=== PATIENT | female | born 1950 | race Caucasian/White ===

== ENCOUNTER 2019-03-05 12:57 | Day surgery (SDC) | payer MEDICARE, OTHER ==
[~2019-03-05] VITALS: Ht 167.6 cm; Wt 112.4 kg
== END 2019-03-05 16:20 | disposition home or self-care (01) ==
LOC: ORSCSDS 12:57
PROVIDERS: Student in an Organized Health Care Education/Training Program
PROC: 0DBN8ZX Excision of Sigmoid Colon, Via Natural or Artificial Opening Endoscopic, Diagnostic (ICD-10-PCS; principal; 2019-03-05 14:15)
DX: R19.5 Other fecal abnormalities (principal); K63.5 Polyp of colon; K57.30 Diverticulosis of large intestine without perforation or abscess without bleeding; E66.01 Morbid (severe) obesity due to excess calories; Z68.41 Body mass index [BMI] 40.0-44.9, adult
CPT/HCPCS: 88305; J2704

== ENCOUNTER → 2019-06-23 | Outpatient (CLI) | payer MEDICARE, OTHER | END | disposition home or self-care (01) | LOC: PLD 11:00 → LAB SHORT 11:00 | DX: L57.0 Actinic keratosis (principal) | CPT/HCPCS: 88305 ==

== ENCOUNTER 2019-12-25 13:54 | Inpatient (IN) | payer MEDICARE, OTHER ==
[~2019-12-25] VITALS: Ht 170.2 cm; Wt 111.5 kg
[2019-12-25 15:25] LABS: BASOPHILS ABSOLUTE AUTO 0.05 K/mm3 (0.00-0.23); BASOPHILS PERCENT AUTO 0 % (0-2); EOSINOPHILS ABSOLUTE AUTO 0.06 K/mm3 (0.00-0.68); EOSINOPHILS PERCENT AUTO 0 % (0-6); Hematocrit 40.4 % (33.0-51.0); IMMATURE GRAN ABSOLUTE AUTO 0.08 K/mm3 (0.00-0.10); IMMATURE GRAN PERCENT AUTO 1 % (0-1); LYMPHOCYTES ABSOLUTE AUTO 1.09 K/mm3 (0.84-5.20); LYMPHOCYTES PERCENT AUTO 7 % (21-46); MONOCYTES ABSOLUTE AUTO 0.65 K/mm3 (0.16-1.47); MONOCYTES PERCENT AUTO 4 % (4-13); Mean Corpuscular HGB 30.3 pg (26.0-34.0); Mean Corpuscular HGB Conc 32.2 g/dL (31.5-36.5); Mean Corpuscular Volume 94 fL (80-100); Mean Platelet Volume 9.5 fL (9.1-12.4); NEUTROPHILS ABSOLUTE AUTO 13.39 K/mm3 (1.96-9.15); NEUTROPHILS PERCENT AUTO 88 % (41-73); Platelet Count 335 K/mm3 (150-400); RDW Coefficient Variation 12.8 % (11.7-14.2); Red Blood Cell Count 4.29 M/mm3 (3.80-5.20); White Blood Cell Count 15.32 K/mm3 (4.00-11.30)
[2019-12-25 15:41] LABS: Alanine Aminotransfer (ALT/SGP 32 U/L (12-78); Albumin, Blood 3.7 g/dL (3.4-5.0); Albumin/Globulin Ratio 0.9 (0.8-1.8); Alk Phos 85 U/L (50-136); Anion Gap 4 mmol/L (6-16); Aspartate Aminotrans (AST/SGOT 23 U/L (12-37); Bilirubin, Total 0.5 mg/dL (0.1-1.0); Blood Urea Nitrogen 21 mg/dL (8-24); Bun/Creatinine Ratio 23.5 (12.0-20.0); CO2, Blood 28 mmol/L (21-32); Calcium, Blood 8.6 mg/dL (8.5-10.1); Chloride, Blood 107 mmol/L (98-108); Creatinine, Blood 0.89 mg/dL (0.40-1.00); Globulin, Blood 3.9 g/dL (2.2-4.0); Glomerular Filtration Rate >60 (60-); Glucose, Blood 124 mg/dL (70-99); Potassium, Blood 3.5 mmol/L (3.5-5.5); Sodium, Blood 139 mmol/L (136-145); Total Protein, Blood 7.6 g/dL (6.4-8.2)
--- NOTE | 2019-12-25 17:55 | NUR ---
PT ARRIVED TO THE ROOM AT APPROXIMATELY 1745. SHE IS ALERT AND ORIENTED. PAINFUL WITH TRANSFER AND REPOSITIONING, PAIN IS MANAGED WHEN PT IS AT REST. PT ON 2L02 WHEN SHE ARRIVED WEANED TO 1L O2 AND PLACED ON CONTINUOUSE PULSE OX. O2 SATURATION AT 94%. WILL CONTINUE TO MONITOR.
--- NOTE | 2019-12-25 19:32 | NUR ---
CONSULT DR. CUI NOTIFIED THAT PT ARRIVED TO THE UNIT. HE WAS ALSO NOTIFIED THAT PT HAS A GOUGE ON HER R BRADSHAW. PLAN FOR PT TO BE NPO AT [place] FOR SURGERY TOMORROW.
--- NOTE | 2019-12-25 19:33 | NUR ---
SHIFT SUMMARY PT IS A NEW ADMIT THIS EVENING. SHE HAS BEEN ALERT AND ORIENTED SINCE SHE ARRIVED TO THE UNIT. SHE DENIES PAIN WHEN AT REST. PT WAS ORIENTED TO THE ROOM AND HER CALL LIGHT. PT IS EATING DINNER AT THIS TIME. PLAN FOR NPO AT [place] FOR SURGERY TOMORROW. VSS. WILL MONITOR UNTIL REPORT TO ONCOMING RN.
[2019-12-25 21:11] LABS: Source, Urine Catheter
[2019-12-25 21:14] LABS: Appearance, Urine Clear (Clear); Bilirubin, Urine Neg (Neg); Blood, Urine 1+ (Neg); Color, Urine Yellow (P-Yellow); Glucose Qualitative, Urine Neg (Neg); Ketones, Urine 2+ (Neg); Leukocyte Esterase, Urine 2+ (Neg); Nitrite, Urine Neg (Neg); Protein, Urine 2+ (Neg); Specific Gravity, Urine 1.025 (1.003-1.022); Urobilinogen, Urine NORM (Normal)
[2019-12-25 21:22] LABS: Bacteria Mod /hpf; Red Blood Cells, Urine 0-2 /hpf (0-2); Squamous Epithelial Cells Mod /hpf (Few)
[2019-12-26 04:28] LABS: BASOPHILS ABSOLUTE AUTO 0.03 K/mm3 (0.00-0.23); BASOPHILS PERCENT AUTO 0 % (0-2); EOSINOPHILS ABSOLUTE AUTO 0.14 K/mm3 (0.00-0.68); EOSINOPHILS PERCENT AUTO 2 % (0-6); Hematocrit 37.4 % (33.0-51.0); Hemoglobin 11.6 g/dL (11.5-16.0); IMMATURE GRAN ABSOLUTE AUTO 0.02 K/mm3 (0.00-0.10); IMMATURE GRAN PERCENT AUTO 0 % (0-1); LYMPHOCYTES ABSOLUTE AUTO 1.72 K/mm3 (0.84-5.20); LYMPHOCYTES PERCENT AUTO 21 % (21-46); MONOCYTES ABSOLUTE AUTO 0.86 K/mm3 (0.16-1.47); MONOCYTES PERCENT AUTO 11 % (4-13); Mean Corpuscular HGB 29.9 pg (26.0-34.0); Mean Corpuscular Volume 96 fL (80-100); Mean Platelet Volume 9.4 fL (9.1-12.4); NEUTROPHILS ABSOLUTE AUTO 5.39 K/mm3 (1.96-9.15); NEUTROPHILS PERCENT AUTO 66 % (41-73); Platelet Count 291 K/mm3 (150-400); RDW Coefficient Variation 13.1 % (11.7-14.2); RDW Standard Deviation 46.8 fL (35.1-46.3); Red Blood Cell Count 3.88 M/mm3 (3.80-5.20); White Blood Cell Count 8.16 K/mm3 (4.00-11.30)
--- NOTE | 2019-12-26 04:32 | NUR ---
SHIFT SUMMARY PT IS A/O X4. HAS BEEN BEDREST DUE TO R HIP FX. REPOSITIONED SEVERAL TIMES THROUGHOUT THE NIGHT. PAIN CONTROLLED WITH 0.5 MG DILAUDED PER ORDERS. FIELDS PLACED AT START OF SHIFT; PATENT WITH STAT LOCK IN PLACE. BIOX IN PLACE; O2 SATURATION >92% ON 1L O2 NC. NO ACUTE CHANGES. ASSISTED WITH ADL'S PRN.
[2019-12-26 04:45] LABS: Anion Gap 2 mmol/L (6-16); Blood Urea Nitrogen 21 mg/dL (8-24); Bun/Creatinine Ratio 25.4 (12.0-20.0); CO2, Blood 29 mmol/L (21-32); Calcium, Blood 7.9 mg/dL (8.5-10.1); Chloride, Blood 108 mmol/L (98-108); Creatinine, Blood 0.83 mg/dL (0.40-1.00); Glomerular Filtration Rate >60 (60-); Glucose, Blood 117 mg/dL (70-99); Potassium, Blood 3.7 mmol/L (3.5-5.5); Sodium, Blood 139 mmol/L (136-145)
--- NOTE | 2019-12-26 19:18 | NUR ---
SHIFT SUMMARY S/P R SERA, AQUACEL CDI, WIGGLES TOES, DENIES N&T, TEDS/SCDS. DENIES PAIN AT THIS TIME. NAUSEA TX'D WITH ZOFRAN. CHAD PO H2O, DECLINED FOOD. AWAITING POST OP VOID. REPORT GIVEN TO MELIA VELARDE.
--- NOTE | 2019-12-26 23:45 | NUR ---
PROVIDER NOTIFIED OF ELEVATED BP HOSPITALIST NOTIFED OF PT'S INCREASED BP, WHICH IS TREADING UP W/MOST RECENT 185/97. ORDER FOR 10 MG IV HYDRALAZINE Q4 FOR SBP ABOVE 160 OBTAINED. WILL WILL ASSESS AND ADMINSTER MEDICATION PER ORDER,
--- NOTE | 2019-12-27 03:43 | NUR ---
MAURY. RN NOTIFIED OF VITALS.
[2019-12-27 04:11] LABS: BASOPHILS ABSOLUTE AUTO 0.02 K/mm3 (0.00-0.23); BASOPHILS PERCENT AUTO 0 % (0-2); EOSINOPHILS PERCENT AUTO 0 % (0-6); Hematocrit 31.7 % (33.0-51.0); Hemoglobin 10.1 g/dL (11.5-16.0); IMMATURE GRAN ABSOLUTE AUTO 0.04 K/mm3 (0.00-0.10); IMMATURE GRAN PERCENT AUTO 0 % (0-1); LYMPHOCYTES ABSOLUTE AUTO 0.94 K/mm3 (0.84-5.20); LYMPHOCYTES PERCENT AUTO 9 % (21-46); MONOCYTES ABSOLUTE AUTO 0.82 K/mm3 (0.16-1.47); MONOCYTES PERCENT AUTO 8 % (4-13); Mean Corpuscular HGB 30.1 pg (26.0-34.0); Mean Corpuscular HGB Conc 31.9 g/dL (31.5-36.5); Mean Corpuscular Volume 94 fL (80-100); Mean Platelet Volume 9.4 fL (9.1-12.4); NEUTROPHILS ABSOLUTE AUTO 9.15 K/mm3 (1.96-9.15); NEUTROPHILS PERCENT AUTO 83 % (41-73); Platelet Count 251 K/mm3 (150-400); RDW Coefficient Variation 12.7 % (11.7-14.2); RDW Standard Deviation 44.1 fL (35.1-46.3); Red Blood Cell Count 3.36 M/mm3 (3.80-5.20); White Blood Cell Count 10.97 K/mm3 (4.00-11.30)
--- NOTE | 2019-12-27 04:15 | NUR ---
SHIFT SUMMARY POD 1 RIGHT KRISTYN, GURPREETEL CDI. PAIN MANAGED WITH PO MEDICATION AND TORADOL; POLAR PACK IN PLACE. PT UP TO BSC AND AMBULATING HALLWAY X1. MEDICATED X1 10MG HYDRALAZINE FOR ELEVATED BP, BP NOW WNL. POOR APPETITE, CHAD CL/CRACKERS. IVF AND ABX ADMINISTERED PER ORDERS. FREQUENT EDUCATION AND ENCOUR REQUIRED T/O SHIFT FOR COUGH/TURN/DB AND I.S. USE. SCDS AND KNEE HIGH TEDS TO BLE IN PLACE. PT CURRENTLY RESTING IN BED WITH CALL LIGHT IN REACH. WILL CONT TO MONITOR AND GIVE REPORT TO ONCOMING RN.
[2019-12-27 04:32] LABS: Anion Gap 4 mmol/L (6-16); Blood Urea Nitrogen 15 mg/dL (8-24); Bun/Creatinine Ratio 18.9 (12.0-20.0); CO2, Blood 28 mmol/L (21-32); Calcium, Blood 7.8 mg/dL (8.5-10.1); Chloride, Blood 106 mmol/L (98-108); Glomerular Filtration Rate >60 (60-); Glucose, Blood 129 mg/dL (70-99); Potassium, Blood 3.8 mmol/L (3.5-5.5); Sodium, Blood 138 mmol/L (136-145)
[2019-12-27] MEDS ORDERED: Acetaminophen500 MG PO (12:50)
[2019-12-27] MEDS ORDERED: DOCU100 PO (12:50)
[2019-12-27] MEDS ORDERED: Milk Of Ma400 MG/5 M PO (12:52)
[2019-12-27] MEDS ORDERED: SENN187 PO (12:53)
[2019-12-27] MEDS ORDERED: XARELTO15 MG PO (13:07)
[2019-12-27] MEDS ORDERED: Percocet 5-3251 EACH PO (13:08)
--- NOTE | 2019-12-27 13:42 | NUR ---
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 DC INSTRUCTIONS PROVIDED. PT REP UNDERSTANDING THOSE INSTRUCTIONS INCLUDING FU WITH SURGEON IN 2 WKS, OK TO SHOWER, NO TUB/JACUZZI, DRESSING CHANGES, SHORT FREQUENT AMBULATION WITH REST PERIODS BLE ELEVATED AND POLAR ALVIN ON. IV DC'D.
--- NOTE | 2019-12-28 08:26 | NUR ---
12/28/19 0826 Keisha Mesa VERIFICATIONS, AUDITS.
== END 2019-12-27 13:37 | disposition home or self-care (01) | DRG 470 ==
LOC: ER 13:54 → SURS 13:55
PROVIDERS: Emergency Medicine; Orthopaedic Surgery; ADMIT Internal Medicine
PROC: 0SR9049 Replacement of Right Hip Joint with Ceramic on Polyethylene Synthetic Substitute, Cemented, Open Approach (ICD-10-PCS; principal; 2019-12-26 11:45)
DX: S72.001A Fracture of unspecified part of neck of right femur, initial encounter for closed fracture (principal); W01.0XXA Fall on same level from slipping, tripping and stumbling without subsequent striking against object, initial encounter; Y93.H2 Activity, gardening and landscaping; Y92.096 Garden or yard of other non-institutional residence as the place of occurrence of the external cause
CPT/HCPCS: 36415; 71045; 72170; 73502; 80048; 80053; 81001; 85025; 93005; 93010; 94762; 96374-59; 96375-59; 97110; 97116; 97162; 99285-25; C1713; C1776; J0171; J0360; J0690; J0735; J1100; J1170; J1885; J2250; J2370; J2405; J2704; J2795; J3010; J7030; J7120; U0002

== ENCOUNTER 2020-01-08 10:27 | Day surgery (SDC) | payer MEDICARE, OTHER ==
[~2020-01-08] VITALS: Ht 167.6 cm; Wt 113.4 kg
[~2020-01-08 10:27] MED LIST: Acetaminophen500 MG PO; DOCU100 PO; Milk Of Ma400 MG/5 M PO; Percocet 5-3251 EACH PO; SENN187 PO; XARELTO15 MG PO
[2020-01-08] MEDS ORDERED: ENOX40I SC (10:47)
--- NOTE | 2020-01-08 15:21 | NUR ---
History, Chart, Medications and Allergies reviewed before start of procedure. Lungs clear T/O to Auscultation. Patient confirms NPO status and agrees with scheduled surgery. Pre-Op teaching done. Pt verbalizes understanding.
--- NOTE | 2020-01-08 17:28 | NUR ---
ARRIVED FROM PACU VIA GURLEIGH, AWAKE, A&0 X3, DENIES ANY PAIN, STATES SHE IS GOING HOME TONIGHT, CONFIRMED W/ DR. XIONG, DC ORDERS NOTED, LUDA, NEENA THIS EVENING ORDERED.
--- NOTE | 2020-01-08 18:03 | NUR ---
DISCHARGE PT AWAKE, VSS, DENIES ANY PAIN, OOB W/ ASSIST TO VOID, TOLERATED WELL, DC INSTRUCTIONS GIVEN, VERBALIZED UNDERSTANDING, INSTRUCTIONS GIVEN ON ANT. HIP PRECAUTIONS, WBAT, CONT. ICE MACHINE AT HOME AND LIMITING AMBULATION PER DR. XIONG, IV DC'D CATH INTACT
== END 2020-01-08 18:05 | disposition home or self-care (01) ==
LOC: ER 10:27 → SURS 14:48 → ER 15:15 → ORSCMMR 15:16 → SURS 17:25 → ORSCMMR 18:05
PROVIDERS: Orthopaedic Surgery
PROC: 0SW9XJZ Revision of Synthetic Substitute in Right Hip Joint, External Approach (ICD-10-PCS; principal; 2020-01-08 15:30)
DX: T84.020A Dislocation of internal right hip prosthesis, initial encounter (principal); I10 Essential (primary) hypertension; K21.9 Gastro-esophageal reflux disease without esophagitis; E11.9 Type 2 diabetes mellitus without complications; E66.01 Morbid (severe) obesity due to excess calories; Z68.39 Body mass index [BMI] 39.0-39.9, adult
CPT/HCPCS: 27250; 72170; 73501; 73502; 96374-59; 99152; 99285-25; J1170; J2704; J3010; J7030; J7120

== ENCOUNTER → 2023-05-29 | Outpatient (CLI) | payer MEDICARE, OTHER ==
[~2023-05-29] MED LIST changes: +ENOX40I SC
== END ==
LOC: LAB SHORT 13:27 → PLD 13:27
DX: L57.0 Actinic keratosis (principal)
CPT/HCPCS: 88305

== ENCOUNTER 2024-06-11 06:39 | Day surgery (SDC) | payer MEDICARE ==
[~2024-06-11] VITALS: Ht 167.6 cm; Wt 84.9 kg
[~2024-06-11 06:39] MED LIST changes: +Balanced Salt Epinephrine Irrigation Solution 500 mL IR SCH; +Lidocaine HCl/Pf 1% 5 ML VIAL XX SCH; +Moxifloxacin HCL 0.5 MG/0.1 ML 0.4MLSYR RIGHTEYE SCH; +PHENYLEPHRINE\\TROPICAMIDE\\TETRACAINE OPHTHALMIC DILATING SOLN RIGHTEYE PRN; +Povidone-Iodine 450 DROP/30 ML Solution RIGHTEYE SCH; +Tetracaine HCl/Pf 0.5% Opth Soln 4 ml ONE; +Triamcinolone Inj Susp 40 MG / ML 1ML Vial INJ SCH
[2024-06-11] MEDS ORDERED: Triamcinolone Inj Susp 40 MG / ML 1ML Vial ONE (06:50)
[2024-06-11] MEDS ORDERED: CALCIUM 600 +1 EA11 PO (07:00)
[2024-06-11] MEDS ORDERED: TURMERIC500 M2 (07:00)
[2024-06-11] MEDS ORDERED: Midazolam HCl 1MG / ML 2ML Vial ONE (07:07)
--- NOTE | 2024-06-11 07:11 | NUR ---
06/11/24 0711 Luz Traore PT HAS SWOLLEN, BLACK LEFT EYE FROM FALL TWO DAYS AGO. HIT HEAD ON WALL AND INJURED RIGHT THUMB. SHE CALLED DR. CEJA'S OFFICE SO THEY ARE AWARE OF INJURIES.
[2024-06-11 08:28] VITALS: BP 128/85
== END 2024-06-11 08:20 | disposition home or self-care (01) ==
LOC: ORSCSDS 06:39
PROVIDERS: Ophthalmology
PROC: 08RJ3JZ Replacement of Right Lens with Synthetic Substitute, Percutaneous Approach (ICD-10-PCS; principal; 2024-06-11 08:00)
DX: E11.36 Type 2 diabetes mellitus with diabetic cataract (principal); I10 Essential (primary) hypertension; K21.9 Gastro-esophageal reflux disease without esophagitis; E66.9 Obesity, unspecified; Z68.30 Body mass index [BMI] 30.0-30.9, adult
CPT/HCPCS: J2250; J3301; V2632

== ENCOUNTER 2024-06-25 06:31 | Day surgery (SDC) | payer MEDICARE ==
[~2024-06-25] VITALS: Ht 167.6 cm; Wt 87.0 kg
[~2024-06-25 06:31] MED LIST changes: +CALCIUM 600 +1 EA11 PO; +Moxifloxacin HCL 0.5 MG/0.1 ML 0.4MLSYR LEFTEYE SCH; -Moxifloxacin HCL 0.5 MG/0.1 ML 0.4MLSYR RIGHTEYE SCH; +PHENYLEPHRINE\\TROPICAMIDE\\TETRACAINE OPHTHALMIC DILATING SOLN LEFTEYE PRN; -PHENYLEPHRINE\\TROPICAMIDE\\TETRACAINE OPHTHALMIC DILATING SOLN RIGHTEYE PRN; +Povidone-Iodine 450 DROP/30 ML Solution LEFTEYE SCH; -Povidone-Iodine 450 DROP/30 ML Solution RIGHTEYE SCH; +TURMERIC500 M2; -Tetracaine HCl/Pf 0.5% Opth Soln 4 ml ONE
[2024-06-25] MEDS ORDERED: Triamcinolone Inj Susp 40 MG / ML 1ML Vial ONE (06:36)
[2024-06-25] MEDS ORDERED: Lidocaine HCl/Pf 1% 5 ML VIAL ONE (06:44)
[2024-06-25] MEDS ORDERED: VALIUM513 PO (06:55)
[2024-06-25] MEDS ORDERED: Midazolam HCl 1MG / ML 2ML Vial ONE (07:34)
[2024-06-25] MEDS ORDERED: Tetracaine HCl 0.5% Opth Soln 15 ml XX ONE (07:58)
[2024-06-25 08:22] VITALS: BP 162/97
== END 2024-06-25 08:34 | disposition home or self-care (01) ==
LOC: ORSCSDS 06:31
PROVIDERS: Ophthalmology
PROC: 08RK3JZ Replacement of Left Lens with Synthetic Substitute, Percutaneous Approach (ICD-10-PCS; principal; 2024-06-25 08:00)
DX: E11.36 Type 2 diabetes mellitus with diabetic cataract (principal); H25.12 Age-related nuclear cataract, left eye; Z96.1 Presence of intraocular lens; I10 Essential (primary) hypertension; K21.9 Gastro-esophageal reflux disease without esophagitis; E11.9 Type 2 diabetes mellitus without complications; E66.9 Obesity, unspecified; Z68.31 Body mass index [BMI] 31.0-31.9, adult; Z79.899 Other long term (current) drug therapy
CPT/HCPCS: J2003; J2250; J3301; V2632